=== PATIENT | male | born 1965 | race Caucasian/White ===

== ENCOUNTER 2017-05-31 08:04 | Inpatient (IN) ==
--- NOTE | 2017-05-30 22:21 | Discharge Summary ---
<Humaira Anderson - Last Filed: 05/30/17 22:18> Date of Encounter: 05/30/17 - Discharge Diagnosis (1) Arthritis of knee Priority: Primary Status: Acute (2) Status post total knee replacement, right Priority: Primary Status: Acute (3) CAD (coronary artery disease) Priority: Secondary Status: Chronic Qualifiers: Coronary Disease-Associated Artery/Lesion type: unspecified vessel or lesion type [place] vs. transplanted heart: unspecified whether [place] or transplanted heart Associated angina: angina presence unspecified Qualified Code(s): I25.10 - Atherosclerotic heart disease of [place] coronary artery without angina pectoris (4) HTN (hypertension) Priority: Secondary Status: Chronic Qualifiers: Hypertension type: essential hypertension Qualified Code(s): I10 - Essential (primary) hypertension (5) ANABELLA on CPAP Priority: Secondary Status: Chronic (6) DMII (diabetes mellitus, type 2) Priority: Secondary Status: Chronic Qualifiers: Diabetes mellitus penitentiary insulin use: unspecified penitentiary insulin use status Diabetes mellitus complication status: with unspecified complications Qualified Code(s): E11.8 - Type 2 diabetes mellitus with unspecified complications (7) Obesity Priority: Secondary Status: Chronic Qualifiers: Obesity type: unspecified obesity type Obesity classification: unspecified obesity classification Serious obesity comorbidity presence: unspecified whether serious comorbidity present Qualified Code(s): E66.9 - Obesity, unspecified - Hospital Course Hospital course: Mr. Craven is a 51 year old male - Time Spent with Patient Total time spent providing and/or coordinating discharge services: - Discharge Medications Home Medications: Aspirin Enteric Coated [Aspirin EC] 81 mg PO DAILY 08/03/15 [History] Atorvastatin [Lipitor] 40 mg PO HS 08/03/15 [History] Carvedilol 12.5 mg PO BID 08/03/15 [History] Esomeprazole Magnesium [Nexium] 20 mg PO DAILY 08/03/15 [History] Lisinopril [Zestril] 20 mg PO DAILY 08/03/15 [History] Tadalafil [Cialis] 10 mg PO DAILY 08/03/15 [History] Aspirin Enteric Coated [Aspirin EC] 325 mg PO DAILY #20 tablet. 05/30/17 [Rx] OxyCODONE Immed Rel [Roxicodone 5 MG] 5 mg PO Q6HR PRN 7 Days #28 tablet [Rx] Alogliptin Mukul/Metformin HCl [Alogliptin-Metformin 12.5-1000] 1 tab PO BID [History] Cetirizine HCl [All Day Allergy] 10 mg PO DAILY 05/31/17 [History] Glimepiride [Amaryl] 4 mg PO DAILY 05/31/17 [History] Allergies/Adverse Reactions: 3 Allergy/AdvReac Type Severity Reaction Status Date / Time No Known Allergies Allergy Verified 05/31/17 08:38 Primary care physician: Chris Iglesias DO - Patient Status Disposition: Home, Self-Care Condition: Good - Discharge Instructions Follow Up With: Chris Iglesias DO [Primary Care Provider] - <Roman Hopkins - Last Filed: 06/01/17 08:07> Orders not resulted at time of discharge: Pending orders 05/31/17 00:01 XR knee RT limited 1-2V [XR] Routine H/H [Hemoglobin and Hematocrit] [HEME] Routine Date of Encounter: 06/01/17 Time of Encounter: 08:07 - Discharge Diagnosis (1) Arthritis of knee Priority: Primary Status: Chronic (2) Status post total knee replacement, right Priority: Primary Status: Acute (3) CAD (coronary artery disease) Priority: Secondary Status: Chronic Qualifiers: Coronary Disease-Associated Artery/Lesion type: unspecified vessel or lesion type [place] vs. transplanted heart: unspecified whether [place] or transplanted heart Associated angina: angina presence unspecified Qualified Code(s): I25.10 - Atherosclerotic heart disease of [place] coronary artery without angina pectoris (4) HTN (hypertension) Priority: Secondary Status: Chronic Qualifiers: Hypertension type: essential hypertension Qualified Code(s): I10 - Essential (primary) hypertension (5) ANABELLA on CPAP Priority: Secondary Status: Chronic (6) DMII (diabetes mellitus, type 2) Priority: Secondary Status: Chronic Qualifiers: Diabetes mellitus ad terminal makeup operator insulin use: unspecified ad terminal makeup operator insulin use status Diabetes mellitus complication status: with unspecified complications Qualified Code(s): E11.8 - Type 2 diabetes mellitus with unspecified complications (7) Morbid obesity with BMI of 40.0-44.9, adult Priority: Secondary Status: Chronic - Hospital Course Hospital course: Mr. Craven is a 51 year old male Status post right total knee replacement The patient had an uneventful postoperative course. They received antibiotics and physical therapy and were discharged in stable condition. There will follow -up in the office in 2 weeks. - Time Spent with Patient Total time spent providing and/or coordinating discharge services: Primary care physician: Chris Iglesias DO - Patient Status Functional capacity at discharge: uses cane/walker Overall status at discharge: patient is progressing back to baseline
[2017-05-31] MEDS ORDERED: CeFAZolin Syr 3,000MG/30 ML 3,000 MG/30 ML SYRINGE IVPB ONE (08:21)
--- NOTE | 2017-05-31 08:29 | Anesthesia Evaluation PreOp ---
Date of Encounter: 05/31/17 Time of Encounter: 08:27 - Past History Planned Operation: Right Total Knee Arthroplasty Cardiac History: [place] (2004), HTN, Hyperlipidemia, Arrhythmia (H/O A-Fib), Cardiac Surgery (CABG x 2 in 2014), Cardiac Stent (stent x 3 prior to CABG) Pulmonary History: Snore, ANABELLA Dx (uses CPAP) STUDENT LIFE DEAN History: Denies Any Significant HX Other Medical History: Diabetes Type II, GERD, Other (obesity BMI=42) Anesthesia History: No Prior Anesthetic Complications, Past Anesthesia Alcohol Use: occasionally Drug use: none Medications and Allergies Aspirin Enteric Coated [Aspirin EC] 81 mg PO DAILY 08/03/15 [History] Atorvastatin [Lipitor] 40 mg PO HS 08/03/15 [History] Carvedilol 12.5 mg PO BID 08/03/15 [History] Esomeprazole Magnesium [Nexium] 20 mg PO DAILY 08/03/15 [History] Lisinopril [Zestril] 20 mg PO DAILY 08/03/15 [History] Tadalafil [Cialis] 10 mg PO DAILY 08/03/15 [History] Aspirin Enteric Coated [Aspirin EC] 325 mg PO DAILY #20 tablet. 05/30/17 [Rx] OxyCODONE Immed Rel [Roxicodone 5 MG] 5 mg PO Q6HR PRN 7 Days #28 tablet [Rx] Alogliptin Mukul/Metformin HCl [Alogliptin-Metformin 12.5-1000] 1 tab PO BID [History] Cetirizine HCl [All Day Allergy] 10 mg PO DAILY 05/31/17 [History] Glimepiride [Amaryl] 4 mg PO DAILY 05/31/17 [History] 3 Allergy/AdvReac Type Severity Reaction Status Date / Time No Known Allergies Allergy Verified 05/31/17 08:38 - Meds/Allergy Pre-op Review Medications Reviewed: Yes Allergies Reviewed: Yes Beta Blockers on Current Med List: Yes If Beta Blockers taken, Date/Time (Last Dose taken): 05/31/2017 at 0700 Anesthesia Results - Labs Laboratory Tests 05/24/17 05/24/17 05/24/17 15:42 15:42 15:42 WBC 8.0 Hgb 16.6 Hct 49.1 Plt Count 253 PT 11.3 INR 1.1 APTT 29.3 Sodium 135 L Potassium 4.1 BUN 15 Creatinine 0.74 - Imaging EKG: report reviewed (04/26/2017 SR, old anterior infarct, NSST abnormality) Additional studies: 04/17/2013 Stress Impression: Exercise ECG is positive for ischemia with 1-2 mm horizontal to downsloping ST depression in leads II, III, V4-V5. ST changes resolved quickly in recovery. The patient had burning 6/10 chest pain beginning in stage 2 of stress and persisting until 6 minutes of recovery. Exercise capacity was fair. Patient exercised 8 min 0 sec into stage 3 of the [place] protocol, stopping due to fatigue. Achieved 85% MPHR, 9.0 METs, DP 25,230. There were no stress-induced arrhythmias. The LV is mildly dilated (LVEDV = 155 mL). Wall Motion: Mild anterolateral hypokinesis. Gated LVEF 61%. There is no evidence of TID. Perfusion imaging shows a moderate sized, moderate to severe intensity, almost completely reversible mid-distal anterolateral, distal anterior, and apical defect consistent with ischemia. SDS = 9. There is also a basal-mid inferolateral, completely reversible defect that is not associated with a wall motion abnormality; most consistent with artifact, but cannot rule out ischemia. Consider cardiac catheterization. The primary inpatient service and the cardiology consult service were notified of the findings. Anesthesia Exam O2 Sat Height 1.83 m Height 1.83 m Weight 140.614 kg Weight 140.614 kg O2 Sat by Pulse Oximetry 94 Vital Signs Temp Pulse Resp BP Pulse Ox 97.7 F 81 18 136/83 94 05/31/17 08:26 05/31/17 08:26 05/31/17 08:26 05/31/17 08:26 05/31/17 08:26 Height: 6' Weight: 310 lbs NPO (# of Hours): 8 Pain Scale: 0 Pain Scale Used: Numeric (1 - 10) - HEENT Pupil (Motor): EOMI Mallampati: III Teeth: Normal Oral Opening: Greater than 3 - STUDENT LIFE DEAN LOC: Oriented STUDENT [employer] DEAN Motor: Normal RUE, Normal LUE, Normal RLE, Normal LLE, Normal Face STUDENT [employer] DEAN Sensory: Normal: RUE, LUE, RLE, LLE, Face - Cardiac Rhythm: Regular Murmur: None - Pulmonary Breath Sounds: bilateral Clear Respiratory Effort: Symmetrical Anesthesia Assess/Plan ASA Score: 3 Modified Gilbert Scale for Level of Consciousness: Cooperative, oriented, and tranquil Anesthetic Plan: General, Regional Monitoring Plan: Standard Monitors Recovery Plan: PACU
[2017-05-31] MEDS ORDERED: Ringers Solution, Lactated 1,000 ML IVC SCH ×2 (08:30→13:28)
[2017-05-31] MEDS ORDERED: Ondansetron 4 MG/2 ML VIAL ONE (08:34)
[2017-05-31] MEDS ORDERED: Dexamethasone 4 MG/ML VIAL ONE (08:34)
[2017-05-31] MEDS ORDERED: *HR* Midazolam HCl 2 MG/2 ML VIAL ONE (08:34)
[2017-05-31] MEDS ORDERED: *HR* Propofol 200 MG/20 ML VIAL IVP ONE ×2 (08:34→08:41)
[2017-05-31] MEDS ORDERED: Lidocaine -MPF 2% 2 ML VIAL ONE ×2 (08:35→09:11)
--- NOTE | 2017-05-31 09:04 | History & Physical Report ---
Date of Encounter: 05/31/17 Time of Encounter: 09:04 24 Hour HP Update - Instructions Instructions: If the History and Physical is less than 30 days old and was completed prior to A.M. admission and or procedure and has NOT been updated on calendar day of procedure please complete this update prior to performing procedure. - Update Patient reports changes in Medical Condition: No Changes in examination, assessment, or condition: No Changes in Medication: No Preop tests/diagnostics Reviewed: Yes Surgery Remains Indicated: Yes Consent for Planned Operative Procedure(s) Verified: Yes - Pre-Operative Checklist Preoperative Checklist Indicated: No Prophylactic Antibiotic Ordered: Yes Is VTE Prophylaxis Indicated?: Yes
[2017-05-31] MEDS ORDERED: ROPIVACAINE HCL/PF 0.5% 30 ML VIAL ONE (09:12)
[2017-05-31] MEDS ORDERED: Bupivacaine/Clonidine Syringe 1 EACH SYRINGE ONE (09:13)
[2017-05-31] MEDS ORDERED: Ethanol\\Acetic Acid\\Na Ace\\Ben 1,000 ML IRRIG.SOLN IR ONE (09:33)
[2017-05-31] MEDS ORDERED: *HR* Succinylcholine 200 MG/10 ML VIAL IVP ONE (09:42)
[2017-05-31] MEDS ORDERED: Ketorolac 30 MG/ML VIAL ONE (09:43)
[2017-05-31] MEDS ORDERED: Lidocaine -MPF 4% 5 ML AMPUL ONE (09:50)
[2017-05-31] MEDS ORDERED: *HR* FentaNYL (PF) 100 MCG/2 ML VIAL ONE ×2 (10:14→11:30)
[2017-05-31] MEDS ORDERED: *HR* Metoprolol 5 MG/5 ML VIAL IVP ONE (10:19)
[2017-05-31] MEDS ORDERED: *HR* OxyCODONE Immed Rel 5 MG TABLET PO PRN (10:21)
[2017-05-31] MEDS ORDERED: *HR* Labetalol 100 MG/20 ML MDV IVP PRN (10:21)
[2017-05-31] MEDS ORDERED: *HR* Promethazine 25 MG/ML VIAL IVP PRN (10:21)
--- NOTE | 2017-05-31 10:35 | Anesthesia Procedures ---
Date of Encounter: 05/31/17 Time of Encounter: 09:38 Procedures: Anesthesia - Nerve Block Procedure Date: 05/31/17 Time: 09:38 Surgical Procedure: right robo total knee replacement Checklist: Correct Patient Identifier, Correct procedure, History checked Correct side: Right Blood Thinner: No Monitor Applied: BP, Pulse Oximetry Sedation: Versed (mg): 2 Indication: Post Op Analgesia Block Type: Other (adductor and ipack) Sterile Technique: Yes Ultrasound used: Yes Anatomy identified: Yes Visual spread of Local: Yes Neuro Stimulation: No Blood on Needle Aspiration: No Smooth Injection of Local: Yes Pain with Injection of Local: No Prep: Chlorhexadine Needle: 21 x 100 mm Stimuplex Local: 0.25% Bupivicaine w/Clonidine 20 mcg/cc (40 for ipack), Ropivacaine ( 30ml of 0.5% rop with 4mg decadron) Volume (cc): 71 Number of Attempts: 1 Complications: None/effective block Vitals: vss thought out, block per request of surgeon
[2017-05-31] MEDS ORDERED: *HR* Phenylephrine 10 MG/ML VIAL ONE (10:49)
--- NOTE | 2017-05-31 10:56 | Orthopedic Operative Note ---
Date of procedure: 05/31/17 Pre-op diagnosis: Right knee arthritis Post-op diagnosis: same Procedure: Procedure:right robotic-assisted Total knee replacement Estimated blood loss: 400 cc Hardware: Metal and polyethylene replacement. Aurora Femur: 5 Tibia:5 TS insert: 9 Patella: 39 Exam Under anesthesia: 9 degree flexion contracture 3 degree varus as calculated by the robot full flexion and no instability Procedural Notes: Grade 4 arthritic changes all 3 compartments. Operative procedure: The patient was brought to the operating room and placed on the operating room table. After general anesthesia was administered the operative knee was examined. Findings were noted in the exam under anesthesia. The operative extremity was prepped and draped in sterile surgical fashion. The patient received IV antibiotics prior to skin incision. A standard midline incision was made centered over the patella. The incision was made through the skin and subcutaneous tissue. A medial parapatellar tendon approach was performed. Care was taken to preserve tissue along the medial aspect of the patella. And to protect the patella tendon. The deep MCL was released off the medial tibia. The infra patella fat pad was excised. The patella was everted and cut was made at the level of the insertion of the quadriceps and patella tendon. The patella was sized the guide was seated and the lug holes are drilled. Knee was brought into flexion. Patient noted to have grade 4 through changes all 3 compartments. Steinmann pins were placed in the tibia and the femur for the tibial and femoral arrays respectively. Checkpoints were also placed in the tibia and the femur for calculation purposes. The knee including the femur and the tibial registered. Osteophytes, ACL and PCL were excised at this point. Extension and flexion were assessed with a valgus stress components were adjusted on the computer to balance the knee. Femoral cuts were made first with robotic assistance, these included the anterior cut posterior cuts chamfer cuts. Tibial cut was then performed with robotic assistance as well. Bone fragments were removed, as well as the medial and lateral meniscus. The size 5 femoral guide was seated box cut was made lug holes are drilled. The size 5 tibial tray was seated and prepared with the fin cutter. Trial reduction with the 9 TS Nenita revealed extension of 0degree and 3 degree varus full flexion. No varus valgus instability. Trial reduction revealed excellent patella tracking. All trial components were removed all bony surfaces were irrigated. The Tibia was seated followed by the femur, The Nenita size 9 was seated and secured patella. Patient had similar findings for motion and stability. The knee was closed by the PA. The knee was then irrigated out with 2 L of pulse irrigation. The extensor mechanism was closed with #2 FiberWire suture and #2 PDS suture. The subcutaneous tissue was then irrigated and closed deep with #1 PDS suture superficially with 0 PDS suture and skin was closed with zip tie The patient was then placed in a sterile dressing and a postoperative brace extubated and transferred to recovery room in stable condition. Anesthesia: GETA Surgeon: Roman Hopkins Was there an assistant professor of geography present: Yes Mule Developer: Mary Goetz Estimated blood loss (cc): 400 Condition: stable Disposition: PACU
[2017-05-31] MEDS ORDERED: Bupivacaine-MPF 0.25% 10 ML VIAL ONE (11:32)
[2017-05-31] MEDS: MORPHINE SUL Oral CONC 10 MG/0.5 ML ORAL.SYG SL PRN ×2 (11:53→11:58)
--- NOTE | 2017-05-31 12:24 | Anesthesia Evaluation Post Op ---
Date of Encounter: 05/31/17 Time of Encounter: 12:23 - Vital Signs Vital Signs: Vital Signs/O2 Sat, Most Current Temp Pulse Resp BP Pulse Ox 99.1 F 71 16 149/90 97 05/31/17 12:09 05/31/17 12:19 05/31/17 12:19 05/31/17 12:19 05/31/17 12:19 - Lungs Lungs: Clear Ascult./Percussion - Airway Airway: Non-obstructed - Cardiovascular Regular Rate - Mental Status Mental Status: Alert & Oriented, Answers Appropriately - Pain Pain Scale: 6 Pain Scale used: Numeric (1 - 10) - Nausea Vomiting Nausea Vomiting: Not Present - Hydration Hydration: Ice chips, Has not voided - Discharge PostOp Status: Transfer Patient to floor
[2017-05-31 12:28] LABS: Hematocrit 45.6 % (37.5-50.1); Hemoglobin 15.2 g/dL (12.9-16.9)
--- NOTE | 2017-05-31 12:32 | Anesthesia Procedures ---
Date of Encounter: 05/31/17 Time of Encounter: 11:58 Procedures: Anesthesia - Nerve Block Procedure Date: 05/31/17 Time: 11:58 Surgical Procedure: right total knee Checklist: Correct Patient Identifier, Correct procedure, History checked Correct side: Right Blood Thinner: No Monitor Applied: EKG, BP, Pulse Oximetry Block Type: Femoral (attempt for rescue d/t severe pain all over knee, no signs of stimulation intra-op noted. ) Catheter placed: No Sterile Technique: Yes Ultrasound used: Yes Anatomy identified: Yes Visual spread of Local: Yes Neuro Stimulation: No Blood on Needle Aspiration: No Smooth Injection of Local: Yes Pain with Injection of Local: No Prep: Chlorhexadine Needle: 21 x 100 mm Stimuplex Local: Other (25ml total, 20ml of 0.25% and 5ml of 0.5% bup plain) Volume (cc): 25 Number of Attempts: 1 Complications: None/effective block Vitals: vss though out, spoke with patient in regards to pain help on anterior aspect of knee only with this block. verbalized understanding.
[2017-05-31] MEDS ORDERED: *HR* Dextrose 50 % in Water (Syg) 50 ML SYRINGE IVP PRN (13:28)
[2017-05-31] MEDS ORDERED: Temazepam 15 MG CAPSULE PO PRN (13:28)
[2017-05-31] MEDS ORDERED: Naloxone 0.4 MG/ML INJ IVP PRN (13:28)
[2017-05-31] MEDS ORDERED: MOM Conc 10 ML UD.LIQ PO PRN (13:28)
[2017-05-31] MEDS ORDERED: traMADol 50 MG TABLET PO PRN (13:28)
[2017-05-31] MEDS ORDERED: Ondansetron 4 MG/2 ML VIAL IVP PRN (13:28)
[2017-05-31] MEDS ORDERED: D5% in Water 1,000 ML IVC PRN (13:28)
[2017-05-31] MEDS ORDERED: Sennosides 8.6 MG TABLET PO PRN (13:28)
[2017-05-31] MEDS ORDERED: Dextrose Gel 15 GM/37.5 ML TUBE PO PRN ×2 (13:28)
[2017-05-31] MEDS ORDERED: *HR* OxyCODONE/APAP 5/325 TABLET PO PRN (13:28)
[2017-05-31] MEDS ORDERED: Acetaminophen IV 1,000 MG/100 ML INFUS..BTL IVPB PRN (13:44)
[2017-05-31] MEDS: Insulin LISPRO 300 UNITS/3 ML VIAL SQ SCH ×2 (15:23→16:49)
[2017-05-31] MEDS: tiZANidine 4 MG TABLET PO PRN (15:25)
[2017-05-31] MEDS: *HR* OxyCODONE Immed Rel 5 MG TABLET PO PRN ×2 (16:37→20:41)
[2017-05-31] MEDS: CeFAZolin Syr 3,000MG/30 ML 3,000 MG/30 ML SYRINGE IVPB SCH (16:38)
[2017-05-31] MEDS ORDERED: *HR* Enoxaparin 30 MG/0.3 ML SYRINGE SQ SCH (18:00)
[2017-05-31] MEDS: *HR* Enoxaparin 30 MG/0.3 ML SYRINGE SQ SCH (19:09)
[2017-05-31] MEDS: ALOGLIPTIN BENZ PO SCH (20:42)
[2017-05-31] MEDS: METFORMIN HCL PO SCH (20:42)
[2017-05-31] MEDS ORDERED: Insulin LISPRO 300 UNITS/3 ML VIAL SQ SCH (21:00)
[2017-06-01] MEDS: tiZANidine 4 MG TABLET PO PRN ×2 (00:19→09:27)
[2017-06-01] MEDS: CeFAZolin Syr 3,000MG/30 ML 3,000 MG/30 ML SYRINGE IVPB SCH (00:22)
[2017-06-01 03:00] LABS: Hematocrit 39.4 % (37.5-50.1)
[2017-06-01 03:08] LABS: Hemoglobin 13.4 g/dL (12.9-16.9)
[2017-06-01 03:20] LABS: BUN/Creatinine Ratio 16 (6-26); Blood Urea Nitrogen 13 mg/dL (6-20); Calcium 8.5 mg/dL (8.6-10.3); Carbon Dioxide 22 mEq/L (23-29); Chloride 101 mEq/L (98-107); Glucose 239 mg/dL (70-105); Osmolality,Calculated 282 (280-300); Potassium 4.3 mEq/L (3.5-5.1); Sodium 132 mEq/L (136-145); eGFR For African Americans > 60 (> 60); eGFR For Non-African Americans > 60 (> 60)
[2017-06-01] MEDS: *HR* OxyCODONE Immed Rel 5 MG TABLET PO PRN ×3 (03:43→11:41)
[2017-06-01] MEDS: *HR* Enoxaparin 30 MG/0.3 ML SYRINGE SQ SCH (06:22)
[2017-06-01] MEDS: Insulin LISPRO 300 UNITS/3 ML VIAL SQ SCH (07:55)
--- NOTE | 2017-06-01 08:08 | Orthopedics Progress Note ---
Date of Encounter: 06/01/17 Time of Encounter: 08:07 - Assessment and Plan (1) Arthritis of knee Current Visit: No Status: Chronic (2) Status post total knee replacement, right Current Visit: No Status: Acute (3) CAD (coronary artery disease) Current Visit: No Status: Chronic Qualifiers: Coronary Disease-Associated Artery/Lesion type: unspecified vessel or lesion type [place] vs. transplanted heart: unspecified whether [place] or transplanted heart Associated angina: angina presence unspecified Qualified Code(s): I25.10 - Atherosclerotic heart disease of [place] coronary artery without angina pectoris (4) HTN (hypertension) Current Visit: No Status: Chronic Qualifiers: Hypertension type: essential hypertension Qualified Code(s): I10 - Essential (primary) hypertension (5) ANABELLA on CPAP Current Visit: No Status: Chronic (6) DMII (diabetes mellitus, type 2) Current Visit: No Status: Chronic Qualifiers: Diabetes mellitus intermediate card tender insulin use: unspecified intermediate card tender insulin use status Diabetes mellitus complication status: with unspecified complications Qualified Code(s): E11.8 - Type 2 diabetes mellitus with unspecified complications (7) Morbid obesity with BMI of 40.0-44.9, adult Current Visit: Yes Status: Chronic Subjective Interval history: Patient was seen this morning doing well without complaints. Afebrile vital signs stable. Operative extremity: Neurovascularly intact Dressing clean dry and intact Calves nontender Assessment and plan: Continue with postoperative care Discharged today Objective Vital signs: Vital Signs Temp Pulse Resp BP Pulse Ox 06/01/17 07:39 98.2 F 71 15 132/77 96 06/01/17 03:29 97.6 F 77 18 113/74 94 06/01/17 01:10 98.2 F 74 18 119/74 95 05/31/17 20:18 98.0 F 90 18 120/77 95 05/31/17 16:44 98.3 F 71 17 110/72 94 05/31/17 15:20 97.6 F 72 18 143/94 95 05/31/17 13:58 98 F 66 16 145/88 97 05/31/17 13:25 98.1 F 68 15 147/90 95 05/31/17 12:55 98 F 68 16 146/88 96 05/31/17 12:29 99.1 F 71 16 147/89 96 05/31/17 12:19 71 16 149/90 97 05/31/17 12:09 99.1 F 72 16 146/88 95 05/31/17 11:59 77 18 146/106 96 05/31/17 11:49 71 18 150/86 96 05/31/17 11:39 97.8 F 77 16 144/94 92 05/31/17 09:40 73 16 153/95 93 05/31/17 09:17 75 16 151/92 94 05/31/17 08:32 97.7 F 81 18 136/83 94 05/31/17 08:26 97.7 F 81 18 136/83 94 Intake and Output 05/31/17 06/01/17 06/01/17 23:59 07:59 15:59 Intake Total 130 / 130 750 / 750 Output Total 700 / 700 825 / 825 Balance -570 / -570 -75 / -75 Intake: IV Fluids 30 / 30 Ancef Syringe 3,000 MG/30 ML 3, 30 / 30 000 mg In 30 ml @ 200 mls/hr IVPB Q8HR E[facility] Rx#:[id number] Oral 100 / 100 750 / 750 Output: Urine 700 / 700 450 / 450 Straight Cath 375 / 375 Other: # Voids 0 0 Weight 149.6 kg Blood Glucose* 263 181 Patient Weight 06/01/17 23:59 Weight 149.6 kg - Labs CBC & BMP: 06/01/17 01:21 06/01/17 01:21 Labs: Abnormal lab results Sodium 132 mEq/L (136-145) L 06/01/17 01:21 Carbon Dioxide 22 mEq/L (23-29) L 06/01/17 01:21 Glucose 239 mg/dL (70-105) H 06/01/17 01:21 POC Glucose 263 mg/dL (70-99) H 05/31/17 20:22 Calcium 8.5 mg/dL (8.6-10.3) L 06/01/17 01:21 - VTE Documentation of Mechanical Device: Venous foot pump, device Consult Discharge Plan - Plan Referrals: Chris Iglesias DO [Primary Care Provider] -
[2017-06-01] MEDS ORDERED: Aspirin Enteric Coated 81 MG Tablet PO SCH (09:00)
[2017-06-01] MEDS ORDERED: Loratadine 10 MG TABLET PO SCH (09:00)
[2017-06-01] MEDS ORDERED: *HR* Glimepiride 4 MG TABLET PO SCH (09:00)
[2017-06-01] MEDS ORDERED: TADALAFIL 10 MG PO SCH (09:00)
[2017-06-01] MEDS ORDERED: Lisinopril 20 MG TABLET PO SCH (09:00)
[2017-06-01] MEDS: ALOGLIPTIN BENZ PO SCH (10:59)
[2017-06-01] MEDS: METFORMIN HCL PO SCH (10:59)
[2017-06-01 11:45] VITALS: BP 107/69
--- NOTE | 2017-06-01 16:25 | Event Note ---
Date of Encounter: 06/01/17 Time of Encounter: 16:24 PCR - POD#1 - Right TKR Robo Patient seen at bedside. Pain controlled - given Lidoderm patch. Labs reviewed. Pain control: adequate - Participating in PT. All questions and concerns addressed. Educated on use of incentive spirometer. Encouraged ambulation and proper hydration. Patient educated on post-operative restrictions and post-operative care. Addressed: Added Lidoderm patch as well as Compression stockings, Doppers were negative. Discharge plan:Home today - with - continuity placed.
--- NOTE | 2017-06-01 16:27 | Physician Discharge Referral ---
Home Health/Hosp Referral Info Transfer to: Home Health Attending Provider: Provider in Charge Post Discharge: PCP - Diagnosis (1) Arthritis of knee Priority: Primary Status: Chronic (2) Status post total knee replacement, right Priority: Primary Status: Acute (3) CAD (coronary artery disease) Status: Chronic (4) HTN (hypertension) Status: Chronic (5) ANABELLA on CPAP Status: Chronic (6) DMII (diabetes mellitus, type 2) Status: Chronic (7) Obesity Status: Chronic - Respiratory Orders None Smoking Cessation: Smoking cessation has been advised. For more information, call the [place] Tobacco Quit Line at 3-029-IXCE-NOW. - Diet/Nutrition Diet/Nutrition Orders: Regular - Activity Activity Orders: Up ad jasmina, Ambulate, Chair, Walker - Services Needed Following services are medically necessary services: Nursing, Home Health Aide, Physical Therapy, Occupational Therapy Home Care Orders: Knee Continuity: Opsite dressing, leave intact until first post-operative visit. If dressing becomes >50% saturated, contact office, remove dressing and place appropriate dressing in its place. Do not allow for dressing to get wet. Zipline/[place] in place, plan to remove at post-operative day #14-16. Total Joint Precautions x 6 weeks Apply cold therapy wrap 3-6x/day for 20 minutes at a time. Encourage ambulation throughout the day Use Incentive spirometer 10x/hour. Elevate affected extremity above heart as tolerated. Brace: Wear knee immobilizer at night x 2 weeks. - Transfer Medications Home Medications: Aspirin Enteric Coated [Aspirin EC] 81 mg PO DAILY 08/03/15 [History] Atorvastatin [Lipitor] 40 mg PO HS 08/03/15 [History] Carvedilol 12.5 mg PO BID 08/03/15 [History] Esomeprazole Magnesium [Nexium] 20 mg PO DAILY 08/03/15 [History] Lisinopril [Zestril] 20 mg PO DAILY 08/03/15 [History] Tadalafil [Cialis] 10 mg PO DAILY 08/03/15 [History] Aspirin Enteric Coated [Aspirin EC] 325 mg PO DAILY #20 tablet. 05/30/17 [Rx] OxyCODONE Immed Rel [Roxicodone 5 MG] 5 mg PO Q6HR PRN 7 Days #28 tablet [Rx] Alogliptin Mukul/Metformin HCl [Alogliptin-Metformin 12.5-1000] 1 tab PO BID [History] Cetirizine HCl [All Day Allergy] 10 mg PO DAILY 05/31/17 [History] Glimepiride [Amaryl] 4 mg PO DAILY 05/31/17 [History] Allergies/Adverse Reactions: 3 Allergy/AdvReac Type Severity Reaction Status Date / Time No Known Allergies Allergy Verified 05/31/17 08:38 Certification: Further, I certify that my clinical findings support that this patient is homebound (i.e. absences from home require considerable and taxing effort and are for medical reasons or jehovah's witness services or infrequently or short duration when for other reasons) because: Homebound Reason: Post-surgery restriction and or conditions limit ability to leave home Attestation: My signature below is to certify that this patient is under my care and that I, or nurse practitioner, or a physician's assistant merchandiser working with me, has a face-to -face encounter with this patient.
== END 2017-06-01 14:11 | disposition home or self-care (01) | DRG 470 ==
LOC: SAMDAY 08:04 → 3NENU 13:21
PROVIDERS: ADMIT Orthopaedic Surgery; ATTEND Orthopaedic Surgery